=== PATIENT | female | born 1950 | race Asian ===

== ENCOUNTER 2018-05-04 05:32 | Day surgery (SDC) | payer MEDICARE, MEDICAID ==
[~2018-05-04] VITALS: Ht 157.5 cm; Wt 59.1 kg
[~2018-05-04 05:32] MED LIST: ASPI-1182 PO; BISA5TAB12 PO; LEVO500 PO; OMEP20 PO; TRAZ-219 PO
[2018-05-04] MEDS ORDERED: ALBUTEROL SULFATE 2.5 MG/0.5 ML NEB SOLUTION NEB ONE (05:33)
[2018-05-04] MEDS ORDERED: LIDOCAINE 2% 30 ML JELLY TP ONE (05:33)
[2018-05-04] MEDS ORDERED: LIDOCAINE 4% 50 ML SOLUTION TP ONE (05:33)
[2018-05-04] MEDS ORDERED: BENZOCAINE 20% 50 MCG/SPRAY 57 GM TP ONE (05:33)
[2018-05-04] MEDS ORDERED: SODIUM CHLORIDE 0.9% 1,000 ML IV ONE (05:56)
[2018-05-04] MEDS ORDERED: FentaNYL CITRATE-PF 100 MCG/2 ML VIAL ONE (07:44)
[2018-05-04] MEDS ORDERED: MIDAZOLAM HCL 2 MG/2 ML VIAL ONE (07:44)
[2018-05-04] MEDS: SODIUM CHLORIDE 0.9% 1,000 ML IV ONE (08:01)
[2018-05-04] MEDS ORDERED: MethylPREDNISolone SOD SUCC 125 MG/2 ML VIAL ONE (08:35)
[2018-05-04] MEDS: MethylPREDNISolone SOD SUCC 125 MG/2 ML VIAL IVP ONE (08:36)
[2018-05-04] MEDS ORDERED: OXYGEN THERAPY IH SCH (20:00)
== END 2018-05-04 09:55 | disposition home or self-care (01) ==
LOC: SURGERY 05:32
PROVIDERS: ATTEND Internal Medicine Critical Care Medicine
DX: J38.4 Edema of larynx (principal); J98.09 Other diseases of bronchus, not elsewhere classified; J98.8 Other specified respiratory disorders; F32.9 Major depressive disorder, single episode, unspecified; Z86.2 Personal history of diseases of the blood and blood-forming organs and certain disorders involving the immune mechanism; Z79.2 Long term (current) use of antibiotics; Z79.891 Long term (current) use of opiate analgesic; Z79.82 Long term (current) use of aspirin; Z91.013 Allergy to seafood; Z90.49 Acquired absence of other specified parts of digestive tract; Z98.890 Other specified postprocedural states; Z79.899 Other long term (current) drug therapy
CPT/HCPCS: 31623; 31624; 87015; 87070; 87205; 87206; 87220; 88108; 88312; J2250; J2930; J3010; J7030

== ENCOUNTER 2019-11-02 09:31 | Emergency (ER) | payer MEDICAID, MEDICARE, OTHER ==
[~2019-11-02] VITALS: Ht 149.9 cm; Wt 60.0 kg
[~2019-11-02 09:31] MED LIST changes: +ASPI-1111 PO; -ASPI-1182 PO; +BISA-151 PO; -BISA5TAB12 PO; +LEVO-72 PO; -LEVO500 PO; -TRAZ-219 PO; +TRAZ-252 PO
[2019-11-02 10:10] LABS: APPEARANCE,URINE CLOUDY (CLEAR); BILIRUBIN,URINE NEGATIVE (NEGATIVE); GLUCOSE, URINE (UA) NEGATIVE (NEGATIVE); KETONES,URINE NEGATIVE (NEGATIVE); LEUKOCYTE ESTERASE ,URINE LARGE (NEGATIVE); NITRATE,URINE NEGATIVE (NEGATIVE); OCCULT BLOOD,URINE MODERATE (NEGATIVE); PH,URINE 6.5 (5.0-8.0); PROTEIN,URINE TRACE (NEGATIVE); UROBILINOGEN,URINE 0.2 mg/dL (<=1.0)
[2019-11-02 10:16] LABS: WBC,URINE 26-50 /HPF (0-5)
[2019-11-02 10:17] LABS: BACTERIA,URINE Few /HPF (None Seen); SQUAMOUS EPITHELIAL CELL,UR Moderate /LPF (None Seen)
[2019-11-02 10:20] VITALS: BP 124/87
== END 2019-11-02 10:50 | disposition home or self-care (01) ==
LOC: EMS 09:39
DX: N39.0 Urinary tract infection, site not specified (principal); Z90.89 Acquired absence of other organs; Z91.018 Allergy to other foods; Z79.82 Long term (current) use of aspirin
CPT/HCPCS: 87086

== ENCOUNTER 2019-12-28 10:00 | Emergency (ER) | payer OTHER ==
[~2019-12-28] VITALS: Ht 149.9 cm; Wt 63.6 kg
[2019-12-28 10:36] LABS: BASOPHILS % (AUTO) 0.4 % (0.0-2.0); EOSINOPHILS % (AUTO) 3.4 % (1.0-6.0); HEMATOCRIT 34.3 % (36-46); HEMOGLOBIN 11.2 g/dL (12.0-16.0); LYMPHOCYTES # (AUTO) 1.2 K/uL (1.0-4.8); LYMPHOCYTES % (AUTO) 12.1 % (22.0-44.0); MEAN CORPUSCULAR HGB CONC 32.6 G/dL (31.0-37.0); MEAN CORPUSCULAR VOLUME 64 fL (80-100); MONOCYTES # (AUTO) 0.6 K/uL (0.1-1.0); MONOCYTES % (AUTO) 6.2 % (2.0-9.0); NEUTROPHILS # (AUTO) 7.7 K/uL (1.8-7.7); NEUTROPHILS % (AUTO) 77.9 % (40.0-70.0); PLATELET COUNT (AUTO) 200 K/uL (150-450); RED BLOOD CELL COUNT(AUTO) 5.33 MIL/uL (4.00-5.20); RED CELL DISTRIBUTION WIDTH 15.5 % (11.5-14.5)
[2019-12-28 10:46] LABS: ANION GAP 4 mmol/L (8-16); CALCIUM, TOTAL 8.9 mg/dL (8.8-10.5); CARBON DIOXIDE 27 mmol/L (22-29); CHLORIDE 104 mmol/L (98-107); CREATININE 0.89 mg/dL (0.60-1.30); GLOMERULAR FILTR. RATE CALC > 60 mL/min (>60); GLUCOSE,RANDOM 156 mg/dL (70-110); POTASSIUM 4.4 mmol/L (3.5-5.1); SODIUM SERUM 135 mmol/L (136-145); UREA NITROGEN, BLOOD 17 mg/dL (7-18)
[2019-12-28 10:51] LABS: ALANINE AMINOTRANSFERASE 45 U/L (12-78); ALKALINE PHOSPHATASE 81 U/L (46-116); ASPARTATE AMINOTRANSFERASE 26 U/L (15-37); BILIRUBIN,TOTAL 0.5 mg/dL (0.1-1.0); LIPASE 268 U/L (73-393); TOTAL PROTEIN, SERUM 8.6 g/dL (6.4-8.2)
[2019-12-28 12:08] LABS: APPEARANCE,URINE TURBID (CLEAR); BILIRUBIN,URINE NEGATIVE (NEGATIVE); GLUCOSE, URINE (UA) NEGATIVE (NEGATIVE); KETONES,URINE NEGATIVE (NEGATIVE); LEUKOCYTE ESTERASE ,URINE LARGE (NEGATIVE); NITRATE,URINE NEGATIVE (NEGATIVE); OCCULT BLOOD,URINE LARGE (NEGATIVE); PH,URINE 5.5 (5.0-8.0); PROTEIN,URINE SEE CONFIRM (NEGATIVE); UROBILINOGEN,URINE 0.2 mg/dL (<=1.0)
[2019-12-28 12:18] VITALS: BP 114/77
[2019-12-28 12:32] LABS: SULFOSALICYLIC ACID,URINE 3+ (Negative)
[2019-12-28 12:33] LABS: RBC,URINE 26-50 /HPF (0-2); WBC,URINE >100 /HPF (0-5)
[2019-12-28 12:34] LABS: BACTERIA,URINE Moderate /HPF (None Seen)
== END 2019-12-28 13:02 | disposition home or self-care (01) ==
LOC: EMS 10:05
DX: N39.0 Urinary tract infection, site not specified (principal); Z90.89 Acquired absence of other organs; Z79.82 Long term (current) use of aspirin
CPT/HCPCS: 87086

== ENCOUNTER 2020-01-17 10:35 | Emergency (ER) | payer OTHER ==
[~2020-01-17] VITALS: Ht 144.8 cm; Wt 63.6 kg
[2020-01-17] MEDS ORDERED: DiphenhydrAMINE HCL 25 MG CAPSULE PO ONE (11:30)
[2020-01-17 12:38] VITALS: BP 145/94
== END 2020-01-17 12:40 | disposition home or self-care (01) ==
LOC: EMS 10:39
DX: R21 Rash and other nonspecific skin eruption (principal)
CPT/HCPCS: Z7502; Z7610

== ENCOUNTER 2022-11-18 09:39 | Emergency (ER) | payer MEDICARE, OTHER ==
[~2022-11-18] VITALS: Ht 147.3 cm; Wt 68.2 kg
[2022-11-18 09:42] VITALS: TEMP 97.9
[2022-11-18] MEDS ORDERED: HYDR25TA2 PO (09:42)
[2022-11-18 10:19] LABS: BASOPHILS % (AUTO) 1.3 % (0.0-2.0); EOSINOPHILS % (AUTO) 7.3 % (1.0-6.0); HEMATOCRIT 30.4 % (36-46); HEMOGLOBIN 9.5 g/dL (12.0-16.0); LYMPHOCYTES # (AUTO) 2.5 K/uL (1.0-4.8); LYMPHOCYTES % (AUTO) 39.7 % (22.0-44.0); MEAN CORPUSCULAR HEMOGLOBIN 20.4 pg (26.0-34.0); MEAN CORPUSCULAR HGB CONC 31.1 G/dL (31.0-37.0); MEAN CORPUSCULAR VOLUME 66 fL (80-100); MONOCYTES # (AUTO) 0.5 K/uL (0.1-1.0); MONOCYTES % (AUTO) 7.5 % (2.0-9.0); NEUTROPHILS # (AUTO) 2.8 K/uL (1.8-7.7); NEUTROPHILS % (AUTO) 44.2 % (40.0-70.0); PLATELET COUNT (AUTO) 209 K/uL (150-450); RED BLOOD CELL COUNT(AUTO) 4.64 MIL/uL (4.00-5.20); RED CELL DISTRIBUTION WIDTH 15.7 % (11.5-14.5)
[2022-11-18 10:23] LABS: APPEARANCE,URINE HAZY (CLEAR); BILIRUBIN,URINE NEGATIVE (NEGATIVE); GLUCOSE, URINE (UA) NEGATIVE (NEGATIVE); KETONES,URINE NEGATIVE (NEGATIVE); LEUKOCYTE ESTERASE ,URINE LARGE (NEGATIVE); NITRATE,URINE NEGATIVE (NEGATIVE); OCCULT BLOOD,URINE SMALL (NEGATIVE); PROTEIN,URINE NEGATIVE (NEGATIVE); SPECIFIC GRAVITIY, URINE 1.009 (1.003-1.030); UROBILINOGEN,URINE <=1.0 mg/dL (<=1.0)
[2022-11-18 10:30] LABS: ANION GAP 11 mmol/L (8-16); CALCIUM, TOTAL 8.7 mg/dL (8.8-10.5); CARBON DIOXIDE 25 mmol/L (22-29); CHLORIDE 105 mmol/L (98-107); CREATININE 0.71 mg/dL (0.60-1.30); GLOMERULAR FILTR. RATE CALC > 60 mL/min (>60); GLUCOSE,RANDOM 112 mg/dL (70-110); POTASSIUM 3.7 mmol/L (3.5-5.1); SODIUM SERUM 141 mmol/L (136-145)
[2022-11-18 10:36] LABS: ALANINE AMINOTRANSFERASE 40 U/L (12-78); ALBUMIN 3.4 g/dL (3.4-5.0); ALKALINE PHOSPHATASE 87 U/L (46-116); ASPARTATE AMINOTRANSFERASE 28 U/L (15-37); BILIRUBIN,TOTAL 0.5 mg/dL (0.1-1.0); LIPASE 81 U/L (16-77); TOTAL PROTEIN, SERUM 7.4 g/dL (6.4-8.2)
[2022-11-18 10:41] LABS: BACTERIA,URINE Moderate /HPF (None Seen); SQUAMOUS EPITHELIAL CELL,UR Moderate /LPF (None Seen)
[2022-11-18 13:38] VITALS: BP 138/81; PULSE 62; RESP 18
== END 2022-11-18 14:10 | disposition home or self-care (01) ==
LOC: EMS 09:39
DX: R10.11 Right upper quadrant pain (principal); I10 Essential (primary) hypertension; Z90.49 Acquired absence of other specified parts of digestive tract
CPT/HCPCS: 80053; 81001; 83690; 84484; 85025; 87086; 87186; 93005; 99284

== ENCOUNTER 2024-01-27 11:42 | Emergency (ER) | payer OTHER, MEDICAID ==
[~2024-01-27] VITALS: Ht 144.8 cm; Wt 70.5 kg
[~2024-01-27 11:42] MED LIST changes: -ASPI-1111 PO; -BISA-151 PO; +HYDR25TA2 PO; -LEVO-72 PO; -OMEP20 PO; -TRAZ-252 PO
[2024-01-27 11:57] VITALS: BP 133/73; PULSE 92; RESP 16; TEMP 100.8; O2SAT 94
[2024-01-27 12:05] LABS: COVID AG,FIA SOURCE NASAL SWAB
[2024-01-27 12:25] LABS: SARS-COV2 (COVID) ANTIGEN,FIA Negative (Negative)
[2024-01-27 12:26] LABS: INFLUENZA TYPE A NEGATIVE FOR TYPE A (NEGATIVE); INFLUENZA TYPE B NEGATIVE FOR TYPE B (NEGATIVE)
== END 2024-01-27 14:34 | disposition left against medical advice (07) ==
LOC: EMS 11:42
DX: R50.9 Fever, unspecified (principal); R05.9 Cough, unspecified; Z20.822 Contact with and (suspected) exposure to COVID-19; Z53.21 Procedure and treatment not carried out due to patient leaving prior to being seen by health care provider
CPT/HCPCS: 87804

== ENCOUNTER 2024-02-04 06:51 | Day surgery (SDC) | payer OTHER ==
[~2024-02-04] VITALS: Ht 152.4 cm; Wt 62.7 kg
[~2024-02-04 06:51] MED LIST changes: +SODIUM CHLORIDE 0.9% 1,000 ML ONE
[2024-02-04] MEDS ORDERED: LIDOCAINE 4% 50 ML SOLUTION TP ONE (06:52)
[2024-02-04] MEDS ORDERED: ALBUTEROL SULFATE 2.5 MG/0.5 ML NEB SOLUTION NEB ONE (06:52)
[2024-02-04] MEDS ORDERED: LIDOCAINE 2% 11 ML JELLY TP ONE (06:52)
[2024-02-04] MEDS ORDERED: BENZOCAINE 20% 50 MCG/SPRAY 57 GM TP ONE (06:52)
[2024-02-04] MEDS ORDERED: SODIUM CHLORIDE 0.9% 1,000 ML ONE (06:58)
[2024-02-04] MEDS ORDERED: DOCU50LI40 PO (07:10)
[2024-02-04] MEDS ORDERED: ACET-2247 PO (07:10)
[2024-02-04] MEDS ORDERED: SIMV-260 PO (07:10)
[2024-02-04] MEDS ORDERED: GABA-1181 PO (07:10)
[2024-02-04] MEDS ORDERED: OMEP20 PO (07:10)
[2024-02-04] MEDS ORDERED: DICL100G60 TP (07:10)
[2024-02-04] MEDS ORDERED: TRIA15CR49 TP (07:10)
[2024-02-04] MEDS ORDERED: CETI-450 PO (07:10)
[2024-02-04] MEDS ORDERED: FAMO20 PO (07:10)
[2024-02-04] MEDS ORDERED: MELO-107 PO (07:10)
[2024-02-04] MEDS: SODIUM CHLORIDE 0.9% 1,000 ML IV ONE (07:40)
[2024-02-04] MEDS ORDERED: MIDAZOLAM HCL 2 MG/2 ML VIAL ONE (08:10)
[2024-02-04] MEDS ORDERED: FentaNYL CITRATE PF 100 MCG/2 ML VIAL ONE (08:10)
[2024-02-04 09:45] VITALS: PULSE 69; RESP 16; O2SAT 100
[2024-02-04] MEDS ORDERED: MethylPREDNISolone SOD SUCC 125 MG/2 ML VIAL ONE (10:25)
[2024-02-04] MEDS: MethylPREDNISolone SOD SUCC 125 MG/2 ML VIAL IVP ONE (10:31)
== END 2024-02-04 11:45 | disposition home or self-care (01) ==
LOC: SURGERY 06:51
PROVIDERS: ATTEND Internal Medicine Critical Care Medicine
DX: R05.3 Chronic cough (principal); R06.2 Wheezing; R49.0 Dysphonia; R04.2 Hemoptysis; J38.4 Edema of larynx; B37.0 Candidal stomatitis; I10 Essential (primary) hypertension; E78.00 Pure hypercholesterolemia, unspecified; M19.90 Unspecified osteoarthritis, unspecified site; Z90.49 Acquired absence of other specified parts of digestive tract; Z98.818 Other dental procedure status; Z98.890 Other specified postprocedural states
CPT/HCPCS: 31623; 31624; 71045; 87015; 87070; 87101; 87206; 87220; 88108; 94640; J2250; J2919; J3010; J7030; J7613; Z7610

== ENCOUNTER 2025-02-17 10:14 | Emergency (ER) | payer OTHER ==
[~2025-02-17] VITALS: Ht 144.8 cm; Wt 59.1 kg
[~2025-02-17 10:14] MED LIST changes: +ACET-2247 PO; +CETI10TA77 PO; +DICL100G60 TP; +DOCU50LI40 PO; +FAMO20 PO; +GABA-1181 PO; +MELO-107 PO; +OMEP-148 PO; +SIMV-260 PO; -SODIUM CHLORIDE 0.9% 1,000 ML ONE; +TRIA15CR49 TP
[2025-02-17 10:19] VITALS: TEMP 97.7
[2025-02-17 10:49] LABS: PLATELET COUNT (AUTO) 231 K/uL (150-450); RED BLOOD CELL COUNT(AUTO) 4.89 MIL/uL (4.00-5.20); RED CELL DISTRIBUTION WIDTH 16.2 % (11.5-14.5); WHITE BLOOD COUNT (AUTO) 5.2 K/uL (4.5-11.0)
[2025-02-17 10:58] LABS: CALCIUM, TOTAL 8.6 mg/dL (8.8-10.5); CREATININE 0.70 mg/dL (0.60-1.30); GLOMERULAR FILTR. RATE CALC > 60 mL/min (>60); GLUCOSE,RANDOM 97 mg/dL (70-110); SODIUM SERUM 137 mmol/L (136-145); UREA NITROGEN, BLOOD 20 mg/dL (7-18)
[2025-02-17 11:00] VITALS: BP 158/80; PULSE 81; RESP 18; O2SAT 97
[2025-02-17] MEDS: ACETAMINOPHEN 325 MG TABLET PO ONE (11:07)
== END 2025-02-17 11:22 | disposition home or self-care (01) ==
LOC: EMS 10:14
DX: I87.2 Venous insufficiency (chronic) (peripheral) (principal); I10 Essential (primary) hypertension; Z90.49 Acquired absence of other specified parts of digestive tract; Z79.1 Long term (current) use of non-steroidal anti-inflammatories (NSAID); Z79.899 Other long term (current) drug therapy
CPT/HCPCS: 80048; 85025; 85610; 85730; 99283